=== PATIENT | female | born 1945 | race Caucasian/White ===

== ENCOUNTER → 2023-09-10 08:27 | Outpatient (CLI) | payer MEDICARE, SELFPAY ==
--- NOTE | 2023-09-10 | DI.CT.S_ITS ---
PROCEDURE: CT CHEST WO CON INDICATIONS: Centrilobular emphysema. Lung nodule TECHNIQUE: Noncontrast 5 mm thick sections acquired from the pulmonary apices to the posterior costophrenic angles. 1 mm lung window, 5 mm thick coronal and sagittal and 7 mm axial MIP reformats were then acquired. For radiation dose reduction, the following was used: automated exposure control, adjustment of mA and/or kV according to patient size. COMPARISON: None. Unable to locate prior CT imaging of the chest. FINDINGS: Image quality: Excellent. Lungs and pleura: Left upper lobe solid, noncalcified pulmonary nodule measuring 8 mm (3/137). Right lower lobe solid, noncalcified pulmonary nodule abutting the diaphragm measuring 7 mm (3/253). Right lower lobe solid pulmonary nodules measuring 2 mm (3/172, 210). Left lower lobe subcentimeter calcified granuloma. Moderate apical predominant centrilobular and paraseptal emphysema. Biapical pleural parenchymal scarring. No pleural effusions or pneumothorax. Central and peripheral airways are patent and normal in caliber. Mediastinum: Heart size is normal. No pericardial effusion. No mediastinal adenopathy by size criteria. Ascending aorta is borderline enlarged measuring 3.9 cm (2/29). Moderate calcification of the thoracic aorta. Moderate to marked coronary vessel calcifications. Calcification of the aortic root. Esophagus is normal in caliber. Small hiatal hernia. Bones and chest wall: No acute fractures. Chronic compression deformities at T5-T7, worse at T6 with approximately 50% height loss. No osseous retropulsion. No suspicious bony lesions. No vertebral body compression fractures. No axillary or supraclavicular adenopathy by size criteria. Thyroid gland demonstrates a macrocalcification in the right thyroid lobe. No discrete pulmonary nodule.. Abdomen: Visualized upper abdominal solid organs and bowel loops appear normal in the absence of contrast. IMPRESSION: 1. Left upper lobe solid, noncalcified pulmonary nodule measuring 8 mm. Lung RADS category 4A. Recommend 3 month low-dose CT. PET-CT may be considered if there is a greater than equal to 8 mm solid nodule or solid component. 2. Right lower lobe solid , noncalcified pulmonary nodule measuring 7 mm and additional right lower lobe 4 mm solid pulmonary nodules. Attention on follow-up. 3. Ascending aorta is borderline enlarged measuring 3.9 cm. Moderate to marked coronary vessel calcifications. 4. Moderate emphysema. Dictated by: Cheryl Dolan M.D. on 09/22/2023 at 19:05 Approved by: Cheryl Dolan M.D. on 09/22/2023 at 19:18
== END ==
PROVIDERS: PCP Internal Medicine; Referring Provider Internal Medicine; Visit Provider Internal Medicine
DX: J43.2 Centrilobular emphysema (principal); Z87.891 Personal history of nicotine dependence
CPT/HCPCS: 71250; 94060; 94729

== ENCOUNTER → 2023-10-28 09:11 | Outpatient (CLI) | payer MEDICARE, SELFPAY ==
--- NOTE | 2023-10-28 | DI.US.S_ITS ---
PROCEDURE: US RETRO PERITONEAL LIMITED INDICATIONS: AAA MONITORING TECHNIQUE: Real time scanning was performed of the aorta and iliac arteries, with image documentation. COMPARISON: None. FINDINGS: Aorta: Proximal aortic diameter measures 2.3 cm. Mid-aorta measures 1.9 cm. Distal aortic diameter is 4.8 cm. There is intramural thrombus noted distally with the lumen measuring 2.9 centimeters. Iliac arteries: Right common iliac artery measures 0.8 cm. Left common iliac artery measures 0.7 cm. IMPRESSION: 4.8 centimeter distal infrarenal abdominal aortic aneurysm. Recommend six-month follow-up to evaluate for stability. Dictated by: Barrie Mclaughlin M.D. on 10/28/2023 at 11:18 Approved by: Barrie Mclaughlin M.D. on 10/28/2023 at 11:22
--- NOTE | 2023-10-28 | DI.US.S_ITS ---
PROCEDURE: US CAROTID DOPPLER BI INDICATIONS: STENOSIS TECHNIQUE: Color and pulse Doppler interrogation was performed of both carotid systems, with image documentation and velocity measurements. COMPARISON: None. FINDINGS: Stenosis calculations are based on SRU (Society of Radi[employer] in Ultras[employer]) criteria. The flow velocities and the arterial waveforms are normal within both carotid arterial systems. Atherosclerotic plaque is seen on both sides. The estimated degree of internal carotid artery stenosis is less than 50%. Antegrade flow is confirmed within both vertebral arteries. IMPRESSION: No hemodynamically significant stenosis is seen. Atherosclerotic plaque is noted bilaterally. Dictated by: Eligio Mensah M.D. on 10/28/2023 at 9:43 Approved by: Eligio Mensah M.D. on 10/28/2023 at 9:43
== END ==
PROVIDERS: PCP Internal Medicine; Referring Provider Internal Medicine; Visit Provider Internal Medicine
DX: I25.10 Atherosclerotic heart disease of native coronary artery without angina pectoris (principal); I71.40 Abdominal aortic aneurysm, without rupture, unspecified; I65.23 Occlusion and stenosis of bilateral carotid arteries
CPT/HCPCS: 76775; 93880

== ENCOUNTER → 2024-04-14 08:39 | Outpatient (CLI) | payer MEDICARE, SELFPAY | PROVIDERS: PCP Internal Medicine; Referring Provider Internal Medicine; Visit Provider Internal Medicine | DX: M47.816 Spondylosis without myelopathy or radiculopathy, lumbar region (principal); M81.8 Other osteoporosis without current pathological fracture; M15.9 Polyosteoarthritis, unspecified; R91.8 Other nonspecific abnormal finding of lung field; I25.10 Atherosclerotic heart disease of native coronary artery without angina pectoris; J44.9 Chronic obstructive pulmonary disease, unspecified; Z87.891 Personal history of nicotine dependence | CPT/HCPCS: 71250; 72148; 94060; 94729 ==

== ENCOUNTER → 2024-04-14 08:41 | Outpatient (CLI) | payer MEDICARE, SELFPAY ==
--- NOTE | 2024-04-14 | DI.CT.S_ITS ---
PROCEDURE: CT CHEST WO CON INDICATIONS: PULMONARY NODULES TECHNIQUE: Noncontrast 5 mm thick sections acquired from the pulmonary apices to the posterior costophrenic angles. 1 mm lung window, 5 mm thick coronal and sagittal and 7 mm axial MIP reformats were then acquired. For radiation dose reduction, the following was used: automated exposure control, adjustment of mA and/or kV according to patient size. COMPARISON: [facility], CT, CT CHEST WO [facility], 09/10/2023, 9:50. FINDINGS: Image quality: Diagnostic. Lower Neck: No enlarged lymph nodes. Thyroid: No thyroid nodules which require sonographic follow up, per consensus guidelines. Axillae: No enlarged lymph nodes. Chest Wall: Unremarkable. Bones: Chronic compression deformities of T5 through T7.. Lungs and Pleura: No pneumothorax or pleural effusions. Moderate centrilobular and paraseptal emphysema. Biapical pleuroparenchymal scarring. Compared to prior CT on 09/10/2023, previously described 8 mm left upper lobe nodule is no longer visualized. Right lower lobe 7 mm solid nodule is no longer visualized. Remainder of sub 6 mm solid pulmonary nodules are stable. No new or enlarging pulmonary nodule. Heart: Heart size is normal. No pericardial effusion. Moderate to severe coronary artery calcifications. Thoracic Vessels: The aorta and pulmonary arteries demonstrate normal size. Stable borderline enlargement of ascending aorta measuring up to 3.9 cm. Aortic arch is calcified. Mediastinum and Erin: No enlarged lymph nodes. Esophagus: No wall thickening. No hiatal hernia. Upper Abdomen: Visualized upper abdomen solid organs and bowel loops appear normal. IMPRESSION: Compared to prior CT 09/22/2023, interval resolution of 8 mm left upper lobe solid nodule and 7 mm right lower lobe nodule. Remainder of sub 6 mm pulmonary nodules are stable. No new or enlarging pulmonary nodule. Recommend low-dose CT chest in 12 months to demonstrate stability. Moderate to severe coronary artery calcifications. Borderline enlarged ascending aorta measuring up to 3.9 cm. Consider cardiology referral. Approved by: Shwetha Chance M.D.,Ph.D. on 04/14/2024 at 17:50
== END ==
PROVIDERS: PCP Internal Medicine; Referring Provider Internal Medicine; Visit Provider Internal Medicine
DX: R91.8 Other nonspecific abnormal finding of lung field (principal); I25.10 Atherosclerotic heart disease of native coronary artery without angina pectoris
CPT/HCPCS: 71250

== ENCOUNTER → 2024-04-14 08:43 | Outpatient (CLI) | payer MEDICARE, SELFPAY ==
--- NOTE | 2024-04-14 | DI.MRI.S_ITS ---
PROCEDURE: MR LUMBAR SPINE WO CON INDICATIONS: OSTEOARTHRITIS / OSTEOPOROSIS TECHNIQUE: Noncontrast sagittal T1 spin echo and T2 fast echo, sagittal STIR, and T2 fast spin echo through the lumbar spine. In cases with scoliosis, additional coronal T2 fast spin echo may be performed. COMPARISON: [facility], CT, CT CHEST WO CON, 04/14/2024, 9:41. [facility], CR, XR LUMBAR SPINE WITH OBLIQUES, 04/06/2024, 10:45. FINDINGS: Image quality: This examination is limited by involuntary motion artifact. Alignment and Curvature: Grade 2 L5-S1 anterolisthesis is seen. Associated pars defects are not seen on the current study. Bone Marrow: Marrow is of normal overall signal. No acute vertebral body compression fractures. Spinal Cord: Conus medullaris terminates at the L1 level. Visualized cord demonstrates normal signal and size. Paraspinous Soft Tissues: No paravertebral masses. T12-L1: Normal appearance. L1-L2: No significant abnormality is seen. L2-L3: The disc height is well-preserved. Loss of disc signal is seen at this level. Mild to moderate disc bulge is seen, which is eccentric to the right. Mild facet joint hypertrophy is seen. Moderate bilateral neural foraminal narrowing is seen. No significant central canal narrowing is seen. L3-L4: The disc height is well-preserved. Loss of disc signal is seen at this level. Moderate generalized disc bulge is seen. There is a mild central disc protrusion. At least moderate facet hypertrophy is seen. Associated hypertrophy of the ligamentum flavum can be seen. There is at least moderate bilateral neural foraminal narrowing. Moderate central canal narrowing is seen. L4-L5: At least moderate loss of disc height and disc signal can be seen. Reactive marrow endplate changes are seen which are hypointense on T1-weighted imaging and hyperintense on T2 weighted imaging, which is most consistent with edema (Modic type I changes). At least moderate disc bulge is seen, with a central/right disc extrusion. Prominent facet hypertrophy is seen. There is moderate to severe bilateral neural foraminal narrowing seen, with an associated degree of compression seen upon the exiting nerve roots. Severe central canal narrowing is seen. L5-S1: Moderate to severe loss of disc height and disc signal can be seen. Reactive marrow endplate changes are seen, which demonstrate mixed T1 weighted and T2-weighted signal, and are attributed to a combination of edema and fatty metaplasia (Modic type I and Modic type II changes). Moderate disc bulge is seen, with a central disc protrusion. Prominent facet hypertrophy can be seen. There is moderate to severe bilateral neural foraminal narrowing seen, with an associated degree of compression seen upon the exiting nerve roots. Severe central canal narrowing is seen. IMPRESSION: Focal prominent lower lumbar spine degenerative changes are seen. Dictated by: Eligio Mensah M.D. on 04/14/2024 at 12:45 Approved by: Eligio Mensah M.D. on 04/14/2024 at 12:48
== END ==
PROVIDERS: PCP Internal Medicine; Referring Provider Internal Medicine Rheumatology; Visit Provider Internal Medicine Rheumatology
DX: M47.816 Spondylosis without myelopathy or radiculopathy, lumbar region (principal); M81.8 Other osteoporosis without current pathological fracture; M15.9 Polyosteoarthritis, unspecified
CPT/HCPCS: 72148

== ENCOUNTER → 2024-11-28 06:52 | Outpatient (CLI) | payer MEDICARE, SELFPAY ==
--- NOTE | 2024-11-28 06:55 | DI.US.S_ITS ---
PROCEDURE: US RETRO PERITONEAL LIMITED INDICATIONS: AAA f/u TECHNIQUE: Real time scanning was performed of the aorta and iliac arteries, with image documentation. COMPARISON: [facility], CT, CT CHEST WO CON, 04/14/2024, 9:41. [facility], US, US RETRO PERITONEAL LIMITED, 10/28/2023, 9:19. FINDINGS: Aorta: Proximal aortic diameter measures 2.7 x 2.4 cm. (Previously 2.3 cm compared to ultrasound 2022). Mid-aorta measures 2.7 x 2.4 cm. (Previously 1.9 cm). Distal aortic diameter 6.1 x 5.5 cm. (Previously 4.8 cm). There is intramural thrombus. Iliac arteries: Right common iliac artery measures 1.3 cm. (Previously 0.8 cm). Left common iliac artery measures 1.4 cm. (Previously 0.7 cm. IMPRESSION: Infrarenal abdominal aortic aneurysm measuring up to 6.1 cm is increased in size compared to 202. Recommend CTA abdomen and pelvis for further evaluation. Comment: Findings were conveyed to [facility] cardiology at time of dictation. Dictated by: Elijah Lawrence M.D. on 11/28/2024 at 11:14 Approved by: Elijah Lawrence M.D. on 11/28/2024 at 11:22
== END ==
PROVIDERS: PCP Internal Medicine; Referring Provider Internal Medicine Cardiovascular Disease; Visit Provider Internal Medicine Cardiovascular Disease
DX: I71.43 Infrarenal abdominal aortic aneurysm, without rupture (principal); I25.10 Atherosclerotic heart disease of native coronary artery without angina pectoris
CPT/HCPCS: 76775